=== PATIENT | female | born 1955 | race Caucasian/White ===

== ENCOUNTER 2021-11-29 14:46 | Inpatient (IN) | payer BC ==
[2021-11-29] MEDS ORDERED: DILTIAZEM DRIP BOLUS FROM BAG 1 MG SOLN IV ONE (15:03)
[2021-11-29] MEDS ORDERED: SODIUM CHLORIDE 0.9% 500 ML 500 ML IV ONE (15:16)
[2021-11-29] MEDS ORDERED: HEPARIN SODIUM 1,000 UN/ML (10ML VL) IV PRN (15:18)
[2021-11-29] MEDS ORDERED: ACETAMINOPHEN TAB 325 MG TAB PO PRN (15:29)
[2021-11-29] MEDS ORDERED: NALOXONE 0.4 MG/ML 1 ML VIAL IV PRN (15:29)
--- NOTE | 2021-11-29 15:29 | ED ---
General Adult HPI - General Chief complaint: Chest Pain Stated complaint: Afib/New Time Seen by Provider: 11/29/21 14:46 Source: patient, EMS, RN notes reviewed Mode of arrival: EMS - History of Present Illness Initial comments: 66-year-old female with a benign past medical history other than appendectomy who started developing palpitations and elevated heart rate today. She was evaluated in the emergency department had [facility] found to be in atrial fibrillation with a rapid ventricular response. Workup was unremarkable other than possibly some evidence of dehydration she did receive 1 L fluid. She was placed on heparin and Cardizem drip. She was evaluated by Dr. Price and was transferred this hospital for further evaluation and treatment. She denies any chest pain shortness breath lightheadedness dizziness or other symptoms. No other complaints or modifying factors no new changes her diet other than perhaps increased protein. - Related Data Allergies Allergy/AdvReac Type Severity Reaction Status Date / Time No Known Allergies Allergy Verified 11/29/21 15:03 Review of Systems ROS Statement: Those systems with pertinent positive or pertinent negative responses have been documented in the HPI. ROS Other: All systems not noted in ROS Statement are negative. Past Medical History Past Medical History: No Reported History History of Any Multi-Drug Resistant Organisms: None Reported Past Surgical History: Appendectomy Smoking Status: Never smoker Past Alcohol Use History: None Reported Past Drug Use History: None Reported General Exam - General Exam Comments Initial Comments: This is a well-developed well-nourished awake alert oriented 4 female General appearance: alert, in no apparent distress Head exam: Present: atraumatic, normocephalic, normal inspection Eye exam: Present: normal appearance, PERRL, EOMI. Absent: scleral icterus, conjunctival injection, periorbital swelling ENT exam: Present: normal exam, mucous membranes moist Neck exam: Present: normal inspection, full ROM, other (No stridor JVD or bruits). Absent: tenderness, meningismus, lymphadenopathy Respiratory exam: Present: normal lung sounds bilaterally. Absent: respiratory distress, wheezes, rales, rhonchi, stridor Cardiovascular Exam: Present: tachycardia, irregular rhythm. Absent: systolic murmur, diastolic murmur, rubs, gallop, clicks GI/Abdominal exam: Present: soft. Absent: distended, tenderness, guarding, rebound, rigid Extremities exam: Present: normal inspection, full ROM, normal capillary refill. Absent: tenderness, pedal edema, joint swelling, calf tenderness Back exam: Present: normal inspection Neurological exam: Present: alert, oriented X3, CN II-XII intact Psychiatric exam: Present: normal affect, normal mood Skin exam: Present: warm, dry, intact, normal color. Absent: rash Course Vital Signs 11/29/21 14:59 Pulse Rate 144 H Respiratory 18 Rate Blood Pressure 92/67 O2 Sat by Pulse 98 Oximetry EKG Findings - EKG Results: EKG: interpreted by ERMD (Atrial fibrillation with her response rate of 140 QRS duration 94 QT since QTC 269/[address] configuration) Medical Decision Making - Medical Decision Making I did review the materials presented from [facility]. I did discuss the case with both Dr. Price and Dr. De La Paz. Patient will be admitted for evaluation and treatment of it was in atrial fibrillation with a rapid ventricular response. Disposition Clinical Impression: Rapid atrial fibrillation Disposition: ADMITTED IP TO THIS HOSP Condition: Fair Referrals: Minh Dubois MD [Primary Care Provider] - 1-2 days Decision Date: 11/29/21 Decision Time: 15:29
[2021-11-29] MEDS ORDERED: HEPARIN SOD,PORK IN 0.45% NACL 25,000 UNIT in 0.45% NACL 1 250ML.BAG IV SCH (15:30)
[2021-11-29] MEDS: DILTIAZEM 125 MG in SODIUM CHLORIDE 0.9% 100 ML IV SCH ×2 (15:35→22:48)
[2021-11-29 15:36] LABS: Basophils % (A) 1 %; Eosinophils % (A) 0 %; HCT 40.5 % (34.0-46.0); Lymphocytes # (A) 0.8 k/uL (1.0-4.8); Lymphocytes % (A) 16 %; MCHC 32.1 g/dL (31.0-37.0); MCV 93.4 fL (80.0-100.0); Mean Platelet Volume 8.3; Monocytes # (A) 0.3 k/uL (0-1.0); Monocytes % (A) 6 %; Neutrophils # (A) 3.9 k/uL (1.3-7.7); Neutrophils % (A) 76 %; Platelet Count 195 k/uL (150-450); RBC 4.34 m/uL (3.80-5.40); WBC 5.1 k/uL (3.8-10.6)
[2021-11-29 15:55] LABS: Prothrombin Time 10.6 sec (9.0-12.0)
--- NOTE | 2021-11-29 16:28 | P.CRDCN ---
History of Present Illness Consult date: 11/29/21 History of present illness: History of Present Illness: The patient is a 66-year-old female with no prior cardiac history, quite active physically, exercises on a regular basis and lifts weight who last night felt anxious and felt her heart rate on the faster side. Her symptoms persisted this morning and she was seen in the emergency room at [facility] and was found to be in atrial fibrillation with a rapid ventricular response. She denies any associated chest discomfort, dyspnea or syncope. She has no PND, orthopnea or peripheral edema. She has no prior history of cardiac arrhythmia. She has no history of hypertension or diabetes, she is a nonsmoker. She drinks one cup of coffee a day and no alcohol intake. She has no prior history of stroke. She had an echocardiogram at [facility] and the preliminary report showed normal size and systolic function with reported moderate mitral and tricuspid regurgitation. Final report is not available. Her TSH and troponin were normal. Medications: She takes no medication on a regular basis Review of Systems: Respiratory: No history of asthma, bronchitis or recent cough. GI: No nausea or vomiting . No history of peptic ulcer disease. No recent GI bleed. : No hematuria or dysuria. Nervous System: No stroke or seizure. Physical Examination: 66-year-old female, alert oriented no apparent distress,Blood pressure 95/65, Heart rate 120s Head: Normocephalic. Eyes: Sclerae nonicteric. Neck: Good carotid upstroke, no bruit, no jugular venous distention. Lungs: Clear to auscultation. Heart: Irregular rate and rhythm, S1-S2, no S3, no rub. Systolic murmur. Abdomen: Soft nontender, positive bowel sounds no organomegaly. Extremities: No edema, intact distal pulses. Labs: Hemoglobin 13, potassium 4.2, BUN 34. Troponin 0.013, TSH 2.6 EKG: Atrial fibrillation with rapid ventricular response and nonspecific ST-T wave changes Impression: 1. New onset atrial fibrillation with rapid ventricular response, her CHADS2- VASC2 score is 1 Plan: 1. Continue IV heparin and IV Cardizem 2. Start beta carlitos orally 3. Obtain found a report of the echo done at [place] 4. Follow cardiac enzymes 5. Depending on her progress and her ventricular response the patient may be a candidate for SOHAIL guided cardioversion if she does not convert spontaneously. If she has recurrent atrial fibrillation afterward she may be a candidate for ablation. The findings and recommendations were discussed with the patient. Thank you for this consult we will follow with you. Past Medical History Past Medical History: No Reported History History of Any Multi-Drug Resistant Organisms: None Reported Past Surgical History: Appendectomy Smoking Status: Never smoker Past Alcohol Use History: None Reported Past Drug Use History: None Reported Medications and Allergies Home Medications Medication Instructions Recorded Confirmed Type No Known Home Medications 11/29/21 11/29/21 History Allergies Allergy/AdvReac Type Severity Reaction Status Date / Time No Known Allergies Allergy Verified 11/29/21 15:48 Physical Exam Vitals: Vital Signs Pulse Resp BP Pulse Ox 11/29/21 14:59 144 H 18 92/67 98 Intake and Output 11/29/21 11/29/21 11/29/21 06:59 14:59 22:59 Other: Weight 63.503 kg Results 11/29/21 15:27 Coagulation 11/29/21 Range/Units 15:27 PT 10.6 (9.0-12.0) sec APTT 32.0 H (22.0-30.0) sec CBC 11/29/21 Range/Units 15:27 WBC 5.1 (3.8-10.6) k/uL RBC 4.34 (3.80-5.40) m/uL Hgb 13.0 (11.4-16.0) gm/dL Hct 40.5 (34.0-46.0) % Plt Count 195 (150-450) k/uL Current Medications Generic Name Dose Route Start Last Admin Trade Name Freq PRN Reason Stop Dose Admin Acetaminophen 650 mg 11/29/21 15:29 Acetaminophen Tab 325 Mg Tab PO Q6HR PRN Mild Pain or Fever > 100.5 Heparin Sodium (Porcine) 0 unit 11/29/21 15:18 Heparin Sodium 1,000 Un/Ml (10ml Vl) IV PER PROTOCOL PRN Low PTT Protocol Diltiazem HCl 125 mg/ Sodium 125 mls @ 15 mls/hr 11/29/21 15:15 11/29/21 15:35 Chloride IV 10 mg/hr .Q8H20M ANKIT 10 mls/hr Administration 15 MG/HR Heparin Sodium/Sodium Chloride 250 mls @ 7.62 mls/hr 11/29/21 15:30 11/29/21 15:56 25,000 unit/ Sodium Chloride IV 12 units/kg/hr .Q24H ANKIT 7.62 mls/hr Administration Protocol 12 UNITS/KG/HR Sodium Chloride 1,000 mls @ 75 mls/hr 11/29/21 15:30 Saline 0.9% IV .[id number] ANKIT Metoprolol Tartrate 25 mg 11/29/21 21:00 Metoprolol Tartrate 25 Mg Tab PO BID ANKIT Naloxone HCl 0.2 mg 11/29/21 15:29 Naloxone 0.4 Mg/Ml 1 Ml Vial IV Q2M PRN Opioid Reversal Intake and Output 11/29/21 11/29/21 11/29/21 06:59 14:59 22:59 Other: Weight 63.503 kg Patient Weight 11/30/21 06:59 Weight 63.503 kg 11/29/21 15:27
[2021-11-29] MEDS: SODIUM CHLORIDE 0.9% 1,000 ML IV SCH (16:35)
--- NOTE | 2021-11-29 19:55 | HP ---
HISTORY AND PHYSICAL DATE OF SERVICE: 11/29/2021 CHIEF COMPLAINT: Palpitations. HISTORY OF PRESENT ILLNESS: This 66-year-old woman with a past medical history of no significant medical issues was previously healthy and was noted to have palpitations. She went to [facility] Emergency Room and the patient was started on heparin and Cardizem drip. Dr. Price was contacted and the patient was transferred to [facility] for further evaluation and treatment. Currently the patient is on IV Cardizem and heparin. Cardiology evaluation is in progress. The patient is extremely anxious also. There is no history of history of fever, rigor or chills, either. PAST MEDICAL HISTORY: No significant cardiorespiratory illness. MEDICATIONS: None. ALLERGIES: NONE. FAMILY HISTORY: History of coronary artery disease in family. No history of atrial fibrillation. SOCIAL HISTORY: No history of smoking. No history of alcohol intake. REVIEW OF SYSTEMS: Fourteen-point review of systems negative except as mentioned earlier. PHYSICAL EXAMINATION: Pulse is 110, irregular. Blood pressure is ntd, respiration 20. HEENT: Conjunctivae normal. NECK: No jugular venous distention. CARDIOVASCULAR: S1, S2 irregular. No S3. No S4. RESPIRATION: Breath sounds diminished at the bases. No rhonchi. No crackles. ABDOMEN: Soft, nontender. LEGS: Minimal edema. NERVOUS SYSTEM: Higher functions as mentioned earlier. Moves all 4 limbs. No focal motor or sensory deficit. LYMPHATICS: No lymph node palpable in neck, axillae or groin. SKIN: No ulcer, rash, bleeding. JOINTS: No active deforming arthropathy. LABS: CBC within normal limits. Other labs are noted. ASSESSMENT: 1. Atrial fibrillation with fast ventricular rate. 2. Bilateral leg edema for evaluation, minimal. RECOMMENDATIONS AND DISCUSSION: In this 66-year-old old woman who presented with multiple complex medical issues, we will monitor the patient closely. I would recommend continuing with the Cardizem drip. Follow closely with Cardiology. Two-D echo with Doppler. Complete cardiac workup. Otherwise, we will follow the patient closely. Further recommendations to follow. MMODL / IJN: [id number] / RIGOBERTO
[2021-11-29] MEDS: METOPROLOL TARTRATE 25 MG TAB PO SCH (20:14)
[2021-11-29] MEDS: ALPRAZolam 0.25 MG TAB PO PRN (22:04)
[2021-11-30] MEDS ORDERED: DILTIAZEM 125 MG in SODIUM CHLORIDE 0.9% 100 ML IV SCH (04:21)
[2021-11-30] MEDS: SODIUM CHLORIDE 0.9% 1,000 ML IV SCH ×2 (04:54→17:11)
[2021-11-30] MEDS: ALPRAZolam 0.25 MG TAB PO PRN ×3 (05:06→23:34)
[2021-11-30 05:52] LABS: Basophils % (A) 1 %; Eosinophils # (A) 0.1 k/uL (0-0.7); Eosinophils % (A) 1 %; HCT 40.4 % (34.0-46.0); Lymphocytes # (A) 1.5 k/uL (1.0-4.8); Lymphocytes % (A) 34 %; MCHC 32.3 g/dL (31.0-37.0); Mean Platelet Volume 8.5; Monocytes # (A) 0.4 k/uL (0-1.0); Monocytes % (A) 9 %; Neutrophils # (A) 2.4 k/uL (1.3-7.7); Neutrophils % (A) 53 %; Platelet Count 155 k/uL (150-450); RBC 4.21 m/uL (3.80-5.40); RDW 13.1 % (11.5-15.5); WBC 4.4 k/uL (3.8-10.6)
[2021-11-30 06:01] LABS: Partial Thromboplastin Time 61.1 sec (22.0-30.0); Prothrombin Time 10.9 sec (9.0-12.0)
[2021-11-30 06:04] LABS: African American GFR (CKD) >90 (>60 ml/min/1.73 sqM); Anion Gap 6 mmol/L; Blood Urea Nitrogen 15 mg/dL (7-17); Calcium 8.6 mg/dL (8.4-10.2); Carbon Dioxide 21 mmol/L (22-30); Chloride 114 mmol/L (98-107); Glucose 91 mg/dL (74-99); Non-African American GFR(CKD) >90 (>60 ml/min/1.73 sqM); Potassium 4.3 mmol/L (3.5-5.1); Sodium 141 mmol/L (137-145)
[2021-11-30] MEDS ORDERED: NITROGLYCERIN SL TABS 0.4 MG TAB SUBLINGUAL PRN (08:23)
[2021-11-30] MEDS ORDERED: ASPIRIN 325 MG TAB PO STA (08:23)
[2021-11-30] MEDS ORDERED: ATORVASTATIN 80 MG TAB PO STA (08:23)
[2021-11-30] MEDS: METOPROLOL TARTRATE 25 MG TAB PO SCH (09:14)
[2021-11-30 09:18] VITALS: RESP 16
--- NOTE | 2021-11-30 11:13 | P.PN ---
Subjective The patient is a 66-year-old female with no prior cardiac history. 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 We have been consulted for new onset atrial fibrillation. Patient presented to [facility] initially, patient was having symptoms of feeling anxious and tachycardia. At [place] she was noted to be in atrial fibrillation with left ventricular response. She was transferred to [facility] for cardiac evaluation. She has no prior history of cardiac arrhythmia. She has no history of hypertension or diabetes, she is a nonsmoker. She has no prior history of stroke. She had an echocardiogram at [facility] and the preliminary report showed normal size and systolic function with reported moderate mitral and tri cuspid regurgitation. Final report is not available. Her TSH and troponin were normal. Troponins on admission to [facility] were elevated 0.352. 11/30/2021 Patient seen and examined at bedside, no acute distress. She denies any shortness of breath. Denies any chest discomfort. She continues to be in atrial fibrillation with heart rate in the 90s. She is currently maintained on IV Cardizem 5mg/hr, IV heparin, metoprolol titrate 25 mg twice a day Vitals: , heart rate 63, afebrile, saturation 97% on room air GENERAL: Well-appearing, well-nourished and in no acute distress. NECK: Supple without JVD or thyromegaly. LUNGS: Breath sounds clear to auscultation bilaterally. Respiration equal and unlabored. No wheezes, rales or rhonchi. HEART: Irregular rate and rhythm without murmurs, rubs or gallops. S1 and S2 heard. EXTREMITIES: Normal range of motion, no edema. No clubbing or cyanosis. Peripheral pulses intact. ASSESSMENT New onset paroxysmal atrial fibrillation with rapid ventricular response, CHADS2-VASC2 score is 1 Elevated troponin, rule out ischemia PLAN -Continue IV heparin and IV Cardizem -Continue metoprolol tartrate 25mg BID -Obtain full echo report done at [place] -Plan for cardiac catheterization with Dr. Hodgson today -I have discussed the risks, benefits and alternative therapies for the above- mentioned procedure and for both sedation/analgesia as well as necessary blood product administration, if indicated, as they pertain to this patient. The patient has indicated understanding and acceptance of the risks and procedures discussed. Questions have been answered appropriately and she is agreeable to move forward with the above-stated procedure. -Depending on her progress and her ventricular response the patient may be a candidate for SOHAIL guided cardioversion tomorrow, will keep patient NPO after midnight. -Further recommendations pending clinical course Nurse practitioner note has been reviewed by physician. Signing provider agrees with the documented findings, assessment, and plan of care. Objective - Vital Signs Vital signs: Vital Signs Temp 98.5 F 11/30/21 02:55 Pulse 63 11/30/21 08:00 Resp 16 11/30/21 08:00 BP 116/74 11/30/21 08:00 Pulse Ox 97 11/30/21 08:00 FiO2 Intake & Output 11/29/21 11/30/21 11/30/21 18:59 06:59 18:59 Intake Total 382.935 Balance 382.935 Weight 63.503 kg Intake: Intake, IV Titration 142.935 Amount Diltiazem 125 mg In 94.167 Sodium Chloride 0.9% 100 ml @ 15 MG/HR 15 mls/hr IV .Q8H20M [facility] Rx#: [id number] Heparin Sod,Pork in 0.45% 48.768 NaCl 25,000 unit In 0.45 % NaCl 1 250ml.bag @ 12 UNITS/KG/HR 7.62 mls/hr IV .Q24H AN[facility] Rx#: [id number] Oral 240 Other: Voiding Method Toilet Toilet # Voids 2 1 - Labs CBC & Chem 7: 11/30/21 05:11 11/30/21 05:11 Labs: Abnormal Lab Results - Last 24 Hours (Table) 11/29/21 11/29/21 11/29/21 Range/Units 15:27 15:27 18:03 Lymphocytes # 0.8 L (1.0-4.8) k/uL APTT 32.0 H (22.0-30.0) sec Chloride (98-107) mmol/L Carbon Dioxide (22-30) mmol/L Creatinine (0.52-1.04) mg/dL Troponin I 0.035 H* (0.000-0.034) ng/mL 11/29/21 11/29/21 11/30/21 Range/Units 21:22 21:22 05:11 Lymphocytes # (1.0-4.8) k/uL APTT 36.7 H (22.0-30.0) sec Chloride 114 H (98-107) mmol/L Carbon Dioxide 21 L (22-30) mmol/L Creatinine 0.50 L (0.52-1.04) mg/dL Troponin I 0.035 H* (0.000-0.034) ng/mL 11/30/21 Range/Units 05:11 Lymphocytes # (1.0-4.8) k/uL APTT 61.1 H (22.0-30.0) sec Chloride (98-107) mmol/L Carbon Dioxide (22-30) mmol/L Creatinine (0.52-1.04) mg/dL Troponin I (0.000-0.034) ng/mL
[2021-11-30 11:39] LABS: Glucose,Whole Blood 89 mg/dL (70-110)
[2021-11-30] MEDS ORDERED: TEMAZEPAM 15 MG CAP PO PRN (12:22)
[2021-11-30] MEDS ORDERED: HEPARIN SODIUM 1,000 UN/ML (10ML VL) ONE (14:13)
[2021-11-30] MEDS ORDERED: fentaNYL (PF) 50 MCG/ML 2 ML AMP ONE (14:13)
[2021-11-30] MEDS ORDERED: VERAPAMIL 2.5 MG/ML 2 ML AMP ONE (14:13)
[2021-11-30] MEDS ORDERED: SODIUM CHLORIDE 0.9% 1,000 ML IV ONE (14:24)
[2021-11-30] MEDS ORDERED: METOPROLOL TARTRATE 5 MG/5 ML VIAL IVP ONE ×2 (14:29→14:35)
[2021-11-30] MEDS ORDERED: fentaNYL (PF) 50 MCG/ML 2 ML AMP IV ONE (14:33)
[2021-11-30] MEDS ORDERED: LIDOCAINE 1% INJ 10MG/ML (5 ML VIAL-PF) SQ ONE (14:37)
[2021-11-30] MEDS ORDERED: MIDAZOLAM 2 MG/2 ML VIAL IV ONE (14:38)
[2021-11-30] MEDS ORDERED: VERAPAMIL SYRINGE (5 MG/10 ML) INTRAARTER ONE (14:39)
[2021-11-30] MEDS ORDERED: IOPAMIDOL-370 125ML BTL INJ ONE (14:49)
[2021-11-30] MEDS ORDERED: RX INFO: IV CONTRAST WAS GIVEN 1 EACH MISC MISCELLANE PRN (14:57)
[2021-11-30] MEDS ORDERED: SODIUM CHLORIDE 0.9% 1,000 ML IV SCH (15:00)
--- NOTE | 2021-11-30 15:06 | P.CARDCATH ---
Date of Procedure: 11/30/21 Description of Procedure: Cardiac Catheterization: The patient is a 66-year-old female with no history of cardiac disease who presented with symptoms of palpitations was noted to be in atrial fibrillation with rapid ventricular response and had mild troponin elevation Recommendations were made regarding cardiac catheterization, the risks and the complications were discussed with the patient who is in full understanding and agreement. Procedure Description: Patient was brought to shift lab technician in fasting semi-sedated state after receiving Fentanyl and Benadryl achieiving moderate conscious sedated state. Using Xylocaine Anesthesia and Seldinger technique, a 6-Azeri sheath was introduced in the right radial artery . Subsequently, selective coronary angiography was performed using a 5-Azeri 3.5 bend Maurisio catheter. Multiple views of the coronary artery including hemiaxial views were obtained. The 5-Azeri pigtaial catheter was used to cross the aortic valve and LVEDP was calculated. Following that, catheter and sheath were removed. Hemostasis was obtained with deployment of TR band . There was no immediate complication. Patient was returned to room in stable condition. Of note, the patient received a total of 3500 units of intravenous heparin as well as intra-arterial verapamil. There was no immediate complications. Findings: Left main: This is a size vessel, bifurcating into LAD and left circumflex, left main has no high-grade stenosis. LAD: This is large size vessel reaching to the apex giving rise to 2 diagonal branch, the LAD and its branches had no evidence of high-grade stenosis Left circumflex: This is a nondominant floor size vessel giving rise to 2 obtuse marginal branch. The proximal circumflex has 10-20% eccentric plaque, the rest of the vessel has no high-grade stenosis RCA: This is a large dominant vessel, bifurcating into PDA and PLV, the distal RCA has mild plaque of 10 are sent. Left Ventriculogram: Not performed Hemodynamics: There was no gradient across the aortic valve, LVEDP 20-24 mmHg Conclusion: 1. Mild plaque the RCA and left circumflex 2. Elevated LVEDP Recommendations: I have recommended coagulation received guided cardioversion tomorrow because of the persistent rapid ventricle response. The findings and recommendations were discussed with the patient and her family, they are in full understanding and agreement. Duration of sedation is 20 minutes.
[2021-11-30] MEDS ORDERED: RIVAROXABAN 20 MG TAB PO SCH (17:30)
--- NOTE | 2021-11-30 18:45 | PN ---
PROGRESS NOTE DATE OF SERVICE: 11/30/2021 This 66 -year-old woman was admitted with atrial fibrillation, also had elevated troponin. Cardiology is planning cardiac catheterization. No chest pain. No palpitations. No fever. On exam, pulse is 59. Blood pressure 118/77, respiratory rate 16. HEENT: Conjunctivae normal. Neck: No JVD. Cardiovascular: S1, S2 irregular. Respiratory: Breath sounds diminished in the bases. Abdomen soft, nontender. Nervous system: No focal deficits. LABORATORY DATA: CBC noted. Otherwise troponin 0.035. ASSESSMENT: 1. Atrial fibrillation with fast ventricular rate. 2. Troponin 0.035, rule out acute tlg-GX-ailtcka-elevation myocardial infarction. 3. Anxiety. 4. Bilateral leg edema. RECOMMENDATIONS AND DISCUSSION: Recommend to continue current medications, symptomatic treatment. Otherwise, cardiac catheterization by cardiology. Continue with Cardizem. See orders for details. Further recommendations to follow. MMODL / IJN: [id number] / MTDD
[2021-11-30 19:37] LABS: Glucose,Whole Blood 92 mg/dL (70-110)
[2021-11-30] MEDS: DILTIAZEM 125 MG in SODIUM CHLORIDE 0.9% 100 ML IV SCH ×2 (20:36→20:50)
[2021-11-30] MEDS: SODIUM CHLORIDE 0.9% 1,000 ML in EMPTY BAG 1 BAG IV SCH (20:50)
[2021-11-30] MEDS ORDERED: METOPROLOL TARTRATE 50 MG TAB PO SCH (21:00)
[2021-11-30 23:28] VITALS: TEMP 97.6
[2021-12-01] MEDS: SODIUM CHLORIDE 0.9% 1,000 ML in EMPTY BAG 1 BAG IV SCH (01:58)
[2021-12-01] MEDS: DILTIAZEM 125 MG in SODIUM CHLORIDE 0.9% 100 ML IV SCH (01:59)
[2021-12-01] MEDS: SODIUM CHLORIDE 0.9% 1,000 ML IV SCH ×2 (03:37→03:38)
[2021-12-01 06:15] LABS: Glucose,Whole Blood 93 mg/dL (70-110)
[2021-12-01] MEDS ORDERED: HEPARIN SODIUM,PORCINE 10,000 UNIT in SODIUM CHLORIDE 0.9% 1,000 ML IRRIGATION PRN (07:00)
[2021-12-01] MEDS ORDERED: HEPARIN SODIUM,PORCINE 2,500 UNIT in SODIUM CHLORIDE 0.9% 250 ML IRRIGATION PRN (07:00)
[2021-12-01 07:36] LABS: Basophils # (A) 0.1 k/uL (0-0.2); Basophils % (A) 2 %; Eosinophils # (A) 0.1 k/uL (0-0.7); Eosinophils % (A) 2 %; HCT 40.5 % (34.0-46.0); HGB 12.9 gm/dL (11.4-16.0); Lymphocytes # (A) 1.7 k/uL (1.0-4.8); Lymphocytes % (A) 38 %; MCHC 31.7 g/dL (31.0-37.0); MCV 94.5 fL (80.0-100.0); Mean Platelet Volume 8.6; Monocytes # (A) 0.4 k/uL (0-1.0); Monocytes % (A) 9 %; Neutrophils # (A) 2.1 k/uL (1.3-7.7); Neutrophils % (A) 46 %; Platelet Count 186 k/uL (150-450); RBC 4.28 m/uL (3.80-5.40); WBC 4.4 k/uL (3.8-10.6)
[2021-12-01 07:54] LABS: African American GFR (CKD) >90 (>60 ml/min/1.73 sqM); Anion Gap 6 mmol/L; Blood Urea Nitrogen 14 mg/dL (7-17); Calcium 8.8 mg/dL (8.4-10.2); Carbon Dioxide 21 mmol/L (22-30); Chloride 113 mmol/L (98-107); Glucose 88 mg/dL (74-99); Non-African American GFR(CKD) >90 (>60 ml/min/1.73 sqM); Potassium 4.3 mmol/L (3.5-5.1); Sodium 140 mmol/L (137-145)
--- NOTE | 2021-12-01 08:17 | P.PN ---
Subjective Progress Note Date: 12/01/21 PROGRESS NOTE The patient is a 66-year-old female with no prior cardiac history who presented with new onset atrial fibrillation with rapid ventricular response and mild troponin elevation. She underwent cardiac catheterization that showed moderate obstructive disease. She converted back to sinus mechanism this morning. She denies any chest discomfort, dizziness or palpitations. She is feeling better at this time. Medications: Lopressor 50 mg twice a day, Lipitor 20 mg daily,Xarelto 20 mg daily PHYSICAL EXAMINATION: Blood pressure 113/68 heart rate 60 LUNGS: Clear to auscultation HEART: Regular rate and rhythm, S1, S2. No S3. systolic murmur ABDOMEN: Soft, nontender, no organomegaly EXTREMETIES: No edema, right radial pulse intact LAB: BUN 14, creatinine 0.59, potassium 4.3, hemoglobin 12.9 IMPRESSION: 1. Paroxysmal atrial fibrillation, back in sinus mechanism 2. Mild troponin elevation secondary to the atrial fibrillation 3. Mild CAD PLAN: 1. Decrease metoprolol to 25 mg twice a day 2. Discharged home today 3. And follow-up as an outpatient to evaluate the duration of anticoagulation in view of her risk Objective - Vital Signs Vital signs: Vital Signs Temp 97.6 F 11/30/21 23:26 Pulse 58 L 12/01/21 03:34 Resp 16 12/01/21 03:34 BP 113/68 12/01/21 03:34 Pulse Ox 98 12/01/21 03:34 FiO2 Intake & Output 11/30/21 12/01/21 12/01/21 18:59 06:59 18:59 Intake Total 1000 98 Balance 1000 98 Intake: IV 200 Intake, IV Titration 800 98 Amount Diltiazem 125 mg In 98 Sodium Chloride 0.9% 100 ml @ 15 MG/HR 15 mls/hr IV .Q8H20M [facility] Rx#: [id number] Sodium Chloride 0.9% 1, 200 000 ml @ 0 mls/hr IV .STK -MED ONE Rx#:[id number] Sodium Chloride 0.9% 1, 600 000 ml @ 75 mls/hr IV . [id number] [facility] Rx#:[id number] Other: Voiding Method Toilet Toilet # Voids 1 2 - Labs CBC & Chem 7: 12/01/21 07:15 12/01/21 07:15 Labs: Abnormal Lab Results - Last 24 Hours (Table) 12/01/21 Range/Units 07:15 Chloride 113 H (98-107) mmol/L Carbon Dioxide 21 L (22-30) mmol/L
[2021-12-01] MEDS ORDERED: METOPROLOL TARTRATE 25 MG TAB PO SCH (09:00)
[2021-12-01] MEDS ORDERED: ATORVASTATIN 20 MG TAB PO SCH (09:00)
[2021-12-01 12:25] VITALS: BP 126/70; PULSE 56
--- NOTE | 2021-12-05 09:10 | P.DS ---
Providers Date of admission: 11/29/21 15:31 Expected date of discharge: 12/01/21 Attending physician: Cary De La Paz Consults: 11/29/21 15:29 Consult Physician Routine Consulting Provider: Gabo Price Consult Reason/Comments: New-onset atrial fibrillation Do you want consulting provider notified?: Already Contacted Primary care physician: Minh Dubois Hospital Course: Final diagnosis Atrial fibrillation with fast ventricular rate Troponin 0.035, rule out acute non-ST segment elevation myocardial infarction Anxiety Bilateral leg edema Discharge disposition Patient is being discharged in a stable condition with guarded prognosis to home. Patient will follow-up with Dr. Platt and resources were provided to establish in the outpatient setting upon discharge. Patient is to also follow- up with cardiology as scheduled . Total time taken is greater than 35 minutes. Hospital course This is a 66-year-old female who came in with palpitations and found to have atrial fibrillation with RVR and found to have elevated troponins and was being closely monitored. Patient was evaluated by cardiology and underwent cardiac catheterization with no stenting. Patient was initially scheduled to have possible cardioversion although converted the morning of. Patient currently rate controlled and will continue on metoprolol and also Xarelto on discharge. Patient will need close outpatient follow-up with cardiology and also resources provided to Dr. Platt to establish with primary care provider. Patient encouraged to avoid excess caffeine and exercising for now and continue with light duty walking with no strenuous weight lifting an attempt to remove stressors in life. Patient feeling much better and would like to go home today. Currently no reports of chest pain, shortness of breath, or palpitations. Patient is afebrile. No reports of nausea or vomiting and patient is tolerating diet. Patient will be discharged home today. On exam vital signs are stable. Cardio S1, S2 are muffled. Respiratory system shows diminished breath sounds at the bases with no wheezing or rhonchi noted. Abdomen is soft and nontender. Nervous system shows no focal deficit. Please refer to medication reconciliation sheet for a list of medications. The impression and plan of care has been dictated by Holley Ram, Nurse Practitioner as directed. Dr. Brain MD I have performed a history and examination and MDM of this patient, discussed the same with the dictator, and agree with the dictator's assessment and plan as written ,documented as a scribe. Based on total visit time, I have performed more than 50% of the visit. Patient Condition at Discharge: Fair Plan - Discharge Summary Discharge Rx Participant: No New Discharge Prescriptions: New Atorvastatin [Lipitor] 20 mg PO DAILY #90 tab Metoprolol Tartrate [Lopressor] 25 mg PO BID #180 tab Rivaroxaban [Xarelto] 20 mg PO W/SUPPER #90 tab Acetaminophen Tab [Tylenol] 650 mg PO Q6HR PRN tab PRN Reason: Mild Pain Or Fever > 100.5 ALPRAZolam [Xanax] 0.25 mg PO TID PRN #9 tab PRN Reason: Anxiety Discharge Medication List ALPRAZolam [Xanax] 0.25 mg PO TID PRN #9 tab 12/01/21 [Rx] Acetaminophen Tab [Tylenol] 650 mg PO Q6HR PRN tab 12/01/21 [Rx] Atorvastatin [Lipitor] 20 mg PO DAILY #90 tab 12/01/21 [Rx] Metoprolol Tartrate [Lopressor] 25 mg PO BID #180 tab 12/01/21 [Rx] Rivaroxaban [Xarelto] 20 mg PO W/SUPPER #90 tab 12/01/21 [Rx] Follow up Appointment(s)/Referral(s): Marcia Hodgson MD [STAFF PHYSICIAN] - 1 Week Minh Dubois MD [Primary Care Provider] - 1-2 days Margie Platt MD [STAFF PHYSICIAN] - 1 Week Patient Instructions/Handouts: A-fib (Atrial Fibrillation) (DC), After Radial Heart Catheterization (GEN) Activity/Diet/Wound Care/Special Instructions: Activity Limited until follow-up Follow-up and establish with primary care provider Dr. Platt on discharge Follow-up with cardiology as discussed Avoid any supplements or stimulants at this time. Continue with low calorie heart healthy low caffeine diet Encourage fluids and rest for the next few days and slowly increase activity once cleared by cardiology Discharge Disposition: HOME SELF-CARE
== END 2021-12-01 14:53 | disposition home or self-care (01) | DRG 287 ==
LOC: EC 14:46 → 3SCARD 15:31
PROVIDERS: ADMIT Hospitalist; ATTEND Hospitalist
PROC: B2111ZZ Fluoroscopy of Multiple Coronary Arteries using Low Osmolar Contrast (ICD-10-PCS; 2021-11-30)
PROC: 4A023N7 Measurement of Cardiac Sampling and Pressure, Left Heart, Percutaneous Approach (ICD-10-PCS; principal; 2021-11-30 14:14)
DX: I48.0 Paroxysmal atrial fibrillation (principal); I08.1 Rheumatic disorders of both mitral and tricuspid valves; F41.9 Anxiety disorder, unspecified; R60.0 Localized edema; R77.8 Other specified abnormalities of plasma proteins; E86.0 Dehydration; R01.1 Cardiac murmur, unspecified; I25.10 Atherosclerotic heart disease of native coronary artery without angina pectoris; Z90.89 Acquired absence of other organs; Z82.49 Family history of ischemic heart disease and other diseases of the circulatory system
CPT/HCPCS: 36415; 80048; 83735; 84484; 85025; 85610; 85730; 93005; 93458; 96365; 96366; 99285